=== PATIENT | female | born 2000 | race Caucasian/White ===

== ENCOUNTER 2020-01-20 19:13 | Emergency (ER) | payer MEDICAID ==
[~2020-01-20] VITALS: Ht 170.2 cm; Wt 122.0 kg
[2020-01-20] MEDS ORDERED: IV NS 0.9% 1,000 ML BAG IV ONE (19:30)
[2020-01-20] MEDS ORDERED: ONDANSETRON HCL/PF 4 MG/2 ML VIAL IVP ONE (19:30)
--- NOTE | 2020-01-20 19:30 | NUR ---
PT PRESENTED TO THE ER WITH A C/O NAUSEA AND POSSIBLE ALLERGIC REACTION. PT HAD AN I&D DONE YESTERDAY AND WAS PRESCRIBED MEDICATION. PT TOOK THE TWO MEDICATIONS AT THE SAME TIME AND HAD MCDONALDS. PT HAS NOT BEEN ABLE TO STOP VOMITTING SINCE. PT WAS UNABLE TO GIVE A URINE SAMPLE AT THIS TIME.
[2020-01-20] MEDS ORDERED: ONDANSETRON HCL/PF 4 MG/2 ML VIAL ONE (19:32)
--- NOTE | 2020-01-20 19:35 | NUR ---
20G IV STARTED IN RT WRIST. BLOOD WAS DRAWN AND SENT TO LAB. LAB [facility] IS AT THE BEDSIDE.
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
--- NOTE | 2020-01-20 19:35 | NUR ---
PT IS ON THE MONITOR AND CONTINUOUS PULSE OX.
--- NOTE | 2020-01-20 19:46 | NUR ---
PT MEDICATED ORDERED.
--- NOTE | 2020-01-20 19:52 | NUR ---
NAUSEA/VOMITTING HAS IMPROVED. NO DRY HEAVING NOTED AT THIS TIME.
[2020-01-20 19:57] LABS: BASOPHILS % (AUTO) 0.2 % (0.0-2.0); EOSINOPHILS % (AUTO) 0.1 % (0.0-6.0); HEMATOCRIT 40 % (33-45); HEMOGLOBIN 13.3 g/dL (11.5-14.8); LYMPHOCYTES % (AUTO) 8.8 % (20.0-44.0); MEAN CORPUSCULAR HGB CONC 33 g/dl (31.0-36.0); MEAN CORPUSCULAR VOLUME 89 fL (82-100); MONOCYTES # (AUTO) 0.2 /CMM (0.1-1.30); MONOCYTES % (AUTO) 1.7 % (2.0-12.0); NEUTROPHILS # (AUTO) 9.7 /CMM (1.8-8.9); NEUTROPHILS % (AUTO) 89.2 % (43.0-81.0); PLATELET COUNT (AUTO) 348 /CMM (150-450); RED BLOOD CELL COUNT(AUTO) 4.47 MIL/uL (4.0-5.2); WHITE BLOOD COUNT (AUTO) 10.9 K/uL (4.3-11.0)
[2020-01-20 20:07] LABS: CALCIUM, SERUM 9.7 mg/dL (8.5-10.1); POTASSIUM 3.7 mmol/L (3.5-5.1)
[2020-01-20 20:12] LABS: ALBUMIN 4.6 g/dL (3.4-5.0); BILIRUBIN,DIRECT 0.1 mg/dL (0.0-0.2); BILIRUBIN,TOTAL 0.6 mg/dL (0.2-1.0); TOTAL PROTEIN, SERUM 8.5 g/dL (6.4-8.2)
[2020-01-20] MEDS ORDERED: diphenhydrAMINE HCL 50 MG/ML VIAL ONE (20:39)
[2020-01-20] MEDS ORDERED: METOCLOPRAMIDE HCL 10 MG/2 ML VIAL ONE (20:39)
--- NOTE | 2020-01-20 20:46 | NUR ---
FEELING NAUSEATED AGAIN. NEW ORDERS GIVEN.
[2020-01-20] MEDS ORDERED: METOCLOPRAMIDE HCL 10 MG/2 ML VIAL IV ONE (21:00)
[2020-01-20] MEDS ORDERED: diphenhydrAMINE HCL 50 MG/ML VIAL IV ONE (21:00)
--- NOTE | 2020-01-20 21:13 | NUR ---
PA AT BEDSIDE SPEAKING TO PT.
[2020-01-20 21:53] LABS: APPEARANCE,URINE Clear (CLEAR); BILIRUBIN,URINE SMALL (NEGATIVE); BLOOD, URINE Negative Ery/uL (NEGATIVE); COLOR,URINE Yellow (YELLOW); KETONES,URINE 40 (NEGATIVE); LEUKOCYTE ESTERASE ,URINE Negative (NEGATIVE); NITRITE, URINE Negative (NEGATIVE); PH,URINE 5.5 (5.0-8.0); PROTEIN,URINE 30 mg/dl (NEGATIVE); UGLUCOSE Negative (NEGATIVE); UROBILINOGEN,URINE 0.2 EU/dL (0.2)
[2020-01-20 21:57] LABS: BACTERIA,URINE Few /HPF (None Seen); RBC,URINE 0-2 /HPF (0-2); SQUAMOUS EPITHELIAL CELL,UR Few /HPF (None Seen)
--- NOTE | 2020-01-20 22:01 | NUR ---
IV removed. Catheter intact and site benign. Pressure and 4x4 applied to site. No bleeding noted. Patient discharged to home in stable condition. Written and verbal after care instructions given. Patient verbalizes understanding of instruction AND RX. PT WAS INSTRUCTED NOT TO CONTINUE TAKING THE ANTIBIOTICS SHE WAS ON FOR THE ABCESS. PT REC'D A NEW RX. PT AMBULATED OUT WITH A STEADY GAIT. VSS. PT'S BROTHER IS PICKING THE PT UP.
[2020-01-20 22:03] VITALS: BP 133/91
== END 2020-01-20 22:01 | disposition home or self-care (01) ==
LOC: ER 19:17
DX: R11.2 Nausea with vomiting, unspecified (principal); T36.1X5A Adverse effect of cephalosporins and other beta-lactam antibiotics, initial encounter; E86.0 Dehydration; E11.9 Type 2 diabetes mellitus without complications; Y92.89 Other specified places as the place of occurrence of the external cause
CPT/HCPCS: 36415; 80048; 80076; 81001; 83690; 84703; 85025; 96361; 96374; 96375; 99284; J1200; J2405; J2765; J7030 ×2; 81000-TC